=== PATIENT | female | born 1945 ===

== ENCOUNTER → 2024-10-03 09:48 | Outpatient (REF) | payer MEDICARE, OTHER, SELFPAY | LOC: HWRAD 09:48 | PROVIDERS: ATTENDING PHYSICIAN Specialist; FAMILY PHYSICIAN Family Medicine | DX: M19.011 Primary osteoarthritis, right shoulder (principal) | CPT/HCPCS: 73200 ==

== ENCOUNTER 2024-12-20 06:19 | Day surgery (SDC) | payer MEDICARE, OTHER, SELFPAY ==
[2024-11-29 11:25] LABS: Hematocrit 36.7 % (37.0-47.0); Hemoglobin 11.8 g/dL (12.0-16.0); Mean Corp Hgb Conc. 32.2 g/dL (33.0-37.0); Mean Corpuscular Volume 89.7 fL (81.0-99.0); Platelet Count 211 10^3/uL (130-400); Red Cell Dist. Width 14.6 % (11.5-14.5)
[2024-11-29 12:29] LABS: Glycohemoglobin (HgbA1c) 5.2 % (4.0-5.6)
[2024-11-29 12:30] LABS: ALT (SGPT) 13 U/L (0-35); AST (SGOT) 22 U/L (14-36); Albumin 4.2 g/dl (3.5-5.0); Alkaline Phosphatase 77 U/L (38-126); Blood Urea Nitrogen 25 mg/dl (7-17); Calcium 9.8 mg/dl (8.4-10.2); Carbon Dioxide 29 mmol/L (22-30); Chloride 110 mmol/L (98-107); Glucose 79 mg/dl (70-99); Potassium 4.6 mmol/L (3.5-5.1); Sodium 143 mmol/L (135-145); Total Protein 6.4 g/dl (6.3-8.2); eGFR > 60.00
[2024-11-29 13:37] VITALS: BMI 28.5
[2024-11-29 15:35] LABS: Iron 93 ug/dl (37-170)
[2024-11-29 15:45] LABS: Total Iron Binding Capacity 312 ug/dl (265-497)
[2024-11-29 17:22] LABS: Ferritin 33.1 ng/ml (11.1-264.0)
[2024-11-29 17:54] LABS: Folate > 20.0 ng/ml (2.76-20); Vitamin B12 382 pg/ml (239-931)
[2024-12-02 10:58] VITALS: BMI 28.5
[2024-12-20] VITALS (13 sets, daily range): BP systolic 82–184; BP diastolic 64–95; BMI 28.5
[2024-12-20] MEDS: CELEBREX 200 MG PO (07:34)
[2024-12-20] MEDS: TYLENOL 1000 MG PO (07:35)
[2024-12-20] MEDS: NORMOSOL-R/PLASMALYTE-A 1000 IV (07:35)
[2024-12-20] MEDS: VANCOCIN 200 IV (07:36)
--- NOTE | 2024-12-20 07:55 | W.DS.TRANS ---
DC Summary - Customer Loyalty Representative
-
Discharge Instructions:
Sleep Apnea Risk Low
Discharge Diagnosis/Procedures R Reverse [employer] Dr. Shafer 12/20/24
Diet As tolerated
Activity No strenuous activity
Driving Restrictions No driving
Instructions:
Stand-Alone Forms: SDS Total Shoulder D/C Inst.
Changes to Home Medications: Yes
Discharge Medications:
DC Medications w/original date entered in [facility]
calcium citrate 400 mg PO BID 11/28/24
ibandronate 150 mg tablet 150 mg PO QMONTH 11/28/24
multivitamin 1 tab PO DAILY 11/28/24
oxybutynin chloride 5 mg tablet 5 mg PO TID 11/28/24
celecoxib 200 mg capsule (Celebrex) 200 mg PO DAILY #14 caps 11/29/24
dexamethasone 4 mg tablet 4 mg PO BID Anti-inflammatory #7 tabs 11/29/24
famotidine 20 mg tablet (Pepcid) 20 mg PO HS #30 tabs 11/29/24
mupirocin 2 % topical ointment 1 applic intranasal BID #1 tube 11/29/24
ondansetron HCl 4 mg tablet 4 mg PO Q6H PRN nausea and vomiting #30 tabs 11/29/24
oxycodone 5 mg tablet 5 - 10 mg (1 - 2 x 5 mg) PO Q6H PRN moderate-severe pain #30 tabs 11/29/24
acetaminophen 325 mg tablet (Tylenol) 650 mg (2 x 325 mg) PO QID #1 tab 12/20/24
aspirin 325 mg tablet 325 mg PO DAILY blood clot prevention #1 tab 12/20/24
docusate sodium 100 mg capsule (Colace) 100 mg PO BID stool softner #1 cap 12/20/24
magnesium hydroxide 400 mg/5 mL oral suspension (Milk of Magnesia) 30 ml PO HS PRN constipation #1 mL 12/20/24
sennosides 8.6 mg tablet (Senokot) 17.2 mg (2 x 8.6 mg) PO BID laxative #2 tabs 12/20/24
Home Medication Changes
celecoxib 200 mg capsule (Celebrex) 200 mg PO DAILY #14 caps 11/29/24
dexamethasone 4 mg tablet 4 mg PO BID Anti-inflammatory #7 tabs 11/29/24
famotidine 20 mg tablet (Pepcid) 20 mg PO HS #30 tabs 11/29/24
mupirocin 2 % topical ointment 1 applic intranasal BID #1 tube 11/29/24
ondansetron HCl 4 mg tablet 4 mg PO Q6H PRN nausea and vomiting #30 tabs 11/29/24
oxycodone 5 mg tablet 5 - 10 mg (1 - 2 x 5 mg) PO Q6H PRN moderate-severe pain #30 tabs 11/29/24
acetaminophen 325 mg tablet (Tylenol) 650 mg (2 x 325 mg) PO QID #1 tab 12/20/24
aspirin 325 mg tablet 325 mg PO DAILY blood clot prevention #1 tab 12/20/24
docusate sodium 100 mg capsule (Colace) 100 mg PO BID stool softner #1 cap 12/20/24
magnesium hydroxide 400 mg/5 mL oral suspension (Milk of Magnesia) 30 ml PO HS PRN constipation #1 mL 12/20/24
sennosides 8.6 mg tablet (Senokot) 17.2 mg (2 x 8.6 mg) PO BID laxative #2 tabs 12/20/24
Pending Results: No
[2024-12-20] MEDS: ANCEF 5 IV (12:49)
== END 2024-12-20 13:10 | disposition home or self-care (01) ==
LOC: SDS 06:19
PROVIDERS: ATTENDING PHYSICIAN Specialist; FAMILY PHYSICIAN Family Medicine; OTHER PHYSICIAN Physician Assistant
DX: M19.011 Primary osteoarthritis, right shoulder (principal); Z96.611 Presence of right artificial shoulder joint
CPT/HCPCS: 23472; 36415; 73020; 80053; 82607; 82728; 82746; 83036; 83540; 83550; 85027; 86850; 86900; 86901; 87070; 87147; 93005; C1713; C1776